=== PATIENT | female | born 1980 | race Hispanic/Latino ===

== ENCOUNTER 2018-11-08 18:34 | Emergency (ER) | payer OTHER, SELFPAY ==
[2018-11-08 19:24] LABS: Pregu Control Background? CLEAR/WHITE (CLR/WHITE); Pregu Control Bar Appear? YES (CONTROL BAR); Specific Gravity 1.012 (1.002-1.036)
[2018-11-08 19:26] LABS: Pregnancy Test - Urine (BHCG) Negative (Negative)
[2018-11-08] MEDS ORDERED: Acetaminophen 325 MG TAB ONE (19:31)
[2018-11-08] MEDS ORDERED: Ibuprofen 800 MG TAB ONE (19:31)
[2018-11-08] MEDS ORDERED: HYDROcodone/Acetaminophen 5/325 mg Tablet ONE (19:31)
[2018-11-08] MEDS ORDERED: Diazepam 5 MG TAB ONE (19:32)
== END 2018-11-08 20:05 | disposition home or self-care (01) ==
LOC: MADERS 18:34
DX: M79.10 Myalgia, unspecified site (principal)
CPT/HCPCS: 81025; 99283

== ENCOUNTER 2019-07-10 18:03 | Emergency (ER) | payer OTHER ==
[2019-07-10 18:25] LABS: Bilirubin Negative (Negative); Blood, Urine Small (Negative); Clarity Slightly Cloudy (Clear); Glucose, Urine (Dipstick) Negative (Negative); Leukocyte Moderate (Negative); Nitrite Negative (Negative); Protein, Urine (Dipstick) Negative (Neg-Trace); Urobilinogen 0.2 mg/dL (Less than 2)
[2019-07-10] MEDS ORDERED: Acetaminophen 500 MG TAB ONE (18:31)
[2019-07-10 18:33] LABS: WBC/HPF 21-50 HPF (0-3)
[2019-07-10 18:34] LABS: Bacteria/HPF 1+ HPF (None Seen)
[2019-07-10 18:37] LABS: Pregnancy Test - Urine (BHCG) Negative (Negative); Pregu Control Background? CLEAR/WHITE (CLR/WHITE); Pregu Control Bar Appear? YES (CONTROL BAR); Specific Gravity 1.005 (1.002-1.036)
[2019-07-10] MEDS ORDERED: Sulfameth/Trimethoprim DS 800-160mg TAB ONE (18:59)
== END 2019-07-10 19:06 | disposition home or self-care (01) ==
LOC: MADERS 18:03
DX: N10 Acute pyelonephritis (principal); I10 Essential (primary) hypertension
CPT/HCPCS: 81003; 81015; 81025; 87077; 87086; 87186; 99283

== ENCOUNTER 2023-04-03 08:39 | Emergency (ER) | payer SELFPAY ==
[2023-04-03 09:02] LABS: Bilirubin Negative (Negative); Blood, Urine Trace (Negative); Glucose, Urine (Dipstick) Negative (Negative); Ketone, Urine Negative (Negative); Leukocyte Moderate (Negative); Nitrite Negative (Negative); Protein, Urine (Dipstick) 30 mg/dL (Neg-Trace); Urobilinogen 0.2 mg/dL (Less than 2)
[2023-04-03 09:03] LABS: Clarity Hazy (Clear); Pregnancy Test - Urine (BHCG) Negative (Negative); Pregu Control Background? CLEAR/WHITE (CLR/WHITE); Pregu Control Bar Appear? YES (CONTROL BAR)
[2023-04-03 09:08] LABS: CAUTI Indications for Culture Dysuria,urgency,freq; WBC/HPF Greater Than 50 HPF (0-3)
[2023-04-03 09:09] LABS: Bacteria/HPF 1+ HPF (None Seen)
[2023-04-03 09:10] LABS: Urine Culture Reflex Yes Yes
[2023-04-03] MEDS ORDERED: Sodium Chloride 0.9% 1,000 ML ONE ×2 (09:28→12:04)
[2023-04-03] MEDS ORDERED: Ketorolac Tromethamine 30 MG/ML VIAL ONE (09:28)
[2023-04-03 09:48] LABS: #Basophils 0.1 thou/uL (0.0-0.2); #Eosinphils 0.2 thou/uL (0.0-0.7); #Lymphocytes 1.6 thou/uL (1.20-3.40); #Monocytes 0.5 thou/uL (0.11-0.59); #Neutrophils 4.7 thou/uL (1.40-6.50); %Basophils 1.5 % (0.0-1.0); %Eosinophils 2.7 % (0.0-10.0); %Lymphocytes 22.7 % (21.0-51.0); %Monocytes 6.9 % (0.0-10.0); %Neutrophils 66.2 % (42.0-75.0); ALT (SGPT) 20 U/L (8-55); AST (SGOT) 19 U/L (5-34); Albumin 4.1 g/dL (3.5-5.0); Alkaline Phosphatase 71 U/L (40-110); Anion Gap 14 mmol/L (10-20); Anisocytosis SLIGHT = 6-15 cells (100X) (0-5/hpf); BUN (Urea Nitrogen) 9 mg/dL (7.0-18.7); Bilirubin, Total 0.4 mg/dL (0.2-1.2); Calc. Creatinine Clearance 0 mL/min (70-130); Calcium 10.2 mg/dL (7.8-10.44); Carbon Dioxide 20 mmol/L (22-29); Chloride 107 mmol/L (98-107); Estimated GFR 94; Globulin 3.4 g/dL (2.4-3.5); Glucose 112 mg/dL (70-105); Hematocrit 34.7 % (36.0-47.0); Hemoglobin 10.7 g/dL (12.0-16.0); Hypochromia SLIGHT = 6-15 cells (100X) (0-5/hpf); MDiff Complete? YES; Magnesium 1.8 mg/dL (1.6-2.6); Mean Corpuscular HGB CONC 30.8 g/dL (32.0-36.0); Mean Corpuscular Hemoglobin 21.1 pg (27.0-31.0); Mean Corpuscular Volume 68.4 fl (78.0-98.0); Mean Platelet Volume 10.4 fL (7.4-10.4); Microcytosis SLIGHT = 6-15 cells (100X) (0-5/hpf); Platelet Count 264 10x3/uL (130-400); Polychromasia SLIGHT = 2-3 cells (100X) (0-2/hpf); Potassium 3.9 mmol/L (3.5-5.1); Protein, Total 7.5 g/dL (6.0-8.3); RBC Distribution Width 19.5 % (11.5-14.5); Red Blood Cell (RBC) Count 5.07 mill/uL (4.20-5.40); Sodium 137 mmol/L (136-145); White Blood Cell (WBC) Count 7.1 10x3/uL (4.8-10.8)
[2023-04-03] MEDS ORDERED: Sodium Chloride 0.9% 100 ML ONE (11:09)
[2023-04-03] MEDS ORDERED: cefTRIAXone (ROCEPHIN) 1 GM VIAL ONE (11:09)
[2023-04-03] MEDS ORDERED: fentaNYL 50 mcg/mL 1 mL Vial ONE (14:58)
== END 2023-04-03 12:45 | disposition short-term general hospital (02) ==
LOC: MADERS 08:39
DX: N13.2 Hydronephrosis with renal and ureteral calculous obstruction (principal); N39.0 Urinary tract infection, site not specified; E11.9 Type 2 diabetes mellitus without complications; I10 Essential (primary) hypertension; Z79.84 Long term (current) use of oral hypoglycemic drugs; Z79.899 Other long term (current) drug therapy
CPT/HCPCS: 74176; 80053; 81001; 81025; 83605; 83735; 85025; 87077; 87086; 87186; 96361; 96365; 96375; J0696; J1885; J3010; J3490; J7050